=== PATIENT | male | born 1960 | race Caucasian/White ===

== ENCOUNTER 2023-08-21 08:02 | Outpatient (REF) | payer OTHER, SELFPAY | END 2023-08-21 08:03 | disposition home or self-care (01) | LOC: HO.LAB 08:02 | PROVIDERS: PCP Internal Medicine; Referring Provider Internal Medicine; Visit Provider Surgery | DX: L02.91 Cutaneous abscess, unspecified (principal) | CPT/HCPCS: 10060; 87070; 87205; 99202 ==

== ENCOUNTER 2023-08-21 08:02 | Outpatient (AMB) | payer OTHER, SELFPAY ==
--- NOTE | 2023-08-21 08:24 | A.OFFVIS_ITS ---
Intake Intake Visit Reasons: Abscess Lt axilla~ HS Intake Note: Patient referred by PCP Dr. Montes for abscess on Lt axilla. Present for 10d. Patient c/o: oozing yellow discharge, bleeding this morning. 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 Accompanied by: Self / Same As Patient Allergies No Known Allergies Allergy (Unverified 08/21/23 08:26) Medication List - Last Reconciled 08/21/23 by Gregg Durant MD acetaminophen mg PO apixaban (Eliquis) 5 mg PO BID aspirin 81 mg PO DAILY atorvastatin 40 mg PO DAILY benztropine mg PO cholecalciferol (vitamin D3) PO digoxin 250 mcg PO DAILY divalproex ER 250 mg PO DAILY divalproex ER mg PO BID empagliflozin (Jardiance) 25 mg PO DAILY fenofibrate 160 mg PO DAILY furosemide 20 mg PO DAILY glipizide 10 mg PO DAILY icosapent ethyl grams PO insulin degludec (Tresiba FlexTouch U-200 insulin) units subcut insulin glargine (Lantus U-100 Insulin) units subcut insulin syringe-needle U-100 (Comfort EZ Insulin Syringe) As directed latanoprost 0.005% drps ophthalmic (eye) lisinopril 10 mg PO DAILY loratadine 10 mg PO DAILY lorazepam 1 mg PO BID metformin ER 1,000 mg PO BID metoprolol tartrate mg PO niacin ER mg PO omeprazole 20 mg PO DAILY perphenazine 16 mg PO BID HPI HPI Comments History of Present Illness Details Patient presents with at least a day history of a left axillary abscess. He was initially given antibiotics by his medical doctor but presents here because of persistence of pain, and drainage. He has never had such issues before. Chart was reviewed and patient evaluated [facility] Medical History (Updated 08/21/23 @ 09:54 by Gregg Durant MD) HTN (hypertension) Diabetes type 2, controlled Depression Surgical History (Updated 08/21/23 @ 08:31 by MIKE Hair) Hx of surgical procedure Social History (Updated 08/21/23 @ 08:32 by MIKE Hair) Alcohol intake: never Patient Tobacco Use Status: Former Tobacco user Quit Date: 2008 Physical Exam Extrem Other: Large left axillary abscess measuring approximately 3 x 3 cm. Office Procedures I&D Drain Details: Risks, benefits, alternatives of incision and drainage of complex left axillary abscess were reviewed the patient and included but not limited to bleeding, recurrence, numbness, pain, scarring the patient was to proceed. After appropriate positioning, patient underwent 1% lidocaine and Betadine prep and uneventful incision and drainage of multiloculated complex left axillary abscess. Cultures were obtained. Wound was irrigated, secured hemostasis, packed, and dressing applied. Patient tolerated procedure well. 95637-Pnigbfas of Skin Abscess, complex All charges added?: Procedure code (CPT) selection complete Assessment & Plan Assessment & Plan (1) Abscess: Code(s): L02.91 - Cutaneous abscess, unspecified Plan Patient is continue antibiotics prescribed by his medical doctor, he will be given analgesics, VNA services through [facility] in the office, and he will see me as directed or p.r.n.. All questions answered. Orders: Orders Routine Culture w Gram Stain Today L02.91 - Cutaneous abscess, unspecified AMB Incision & Drainage Today L02.91 - Cutaneous abscess, unspecified Coding Level of Care Code New Pt Level 5 (40473) Diagnoses Abscess L02.91 CPT Codes I&D Drain - Drain 2: 39029-Uldiifnh of Skin Abscess, complex ([id number])
== END 2023-08-21 08:55 | disposition home or self-care (01) ==
PROVIDERS: PCP Internal Medicine; Referring Provider Internal Medicine; Visit Provider Surgery
DX: L02.91 Cutaneous abscess, unspecified (principal)
CPT/HCPCS: 10060; 99204

== ENCOUNTER → 2023-08-22 08:43 | Outpatient (BNVA) | payer OTHER, SELFPAY | PROVIDERS: PCP Internal Medicine; Visit Provider Surgery | DX: Z48.1 Encounter for planned postprocedural wound closure (principal); Z87.2 Personal history of diseases of the skin and subcutaneous tissue | CPT/HCPCS: 99211 ==